=== PATIENT | female | born 1975 | race Caucasian/White ===

== ENCOUNTER → 2019-05-09 | Outpatient (CLI) | payer OTHER ==
[2019-05-09 16:03] LABS: BASOPHILS # (AUTO) 0.07 x10^3/uL (0-0.1); BASOPHILS % (AUTO) 1 % (0-1); EOSINOPHILS # (AUTO) 0.29 x10^3/uL (0-0.4); EOSINOPHILS % (AUTO) 3 % (1-7); LYMPHOCYTES # (AUTO) 1.42 x10^3/uL (1-3.4); LYMPHOCYTES % (AUTO) 13 % (22-44); MD NO; MEAN CORPUSCULAR HEMOGLOBIN 33.2 pg (27.0-34.8); MEAN CORPUSCULAR HGB CONC 33.6 g/dL (32.4-35.8); MEAN CORPUSCULAR VOLUME 98.8 fL (80-100); MEAN PLATELET VOLUME 7.8 fL (7.4-10.4); MONOCYTES # (AUTO) 0.66 x10^3/uL (0.2-0.8); MONOCYTES % (AUTO) 6 % (2-9); NEUTROPHILS # (AUTO) 8.27 x10^3/uL (1.8-6.8); NEUTROPHILS % (AUTO) 77 % (42-75); PLATELET COUNT 368 x10^3/uL (130-400); RED BLOOD COUNT 4.06 x10^6/uL (3.82-5.3); RED CELL DISTRIBUTION WIDTH 14.2 % (9.6-15.2)
[2019-05-09 16:20] LABS: ANION GAP 5 mmol/L (5-15); CALCIUM 8.3 mg/dL (8.5-10.1); CHLORIDE 106 mmol/L (98-107); CREATININE 0.86 mg/dL (0.55-1.02)
== END | disposition home or self-care (01) ==
LOC: CFH 14:23
PROVIDERS: ATTEND Nurse Practitioner Family
DX: D72.829 Elevated white blood cell count, unspecified (principal); E87.5 Hyperkalemia
CPT/HCPCS: 36415; 80048; 85025

== ENCOUNTER 2019-06-02 10:21 | Day surgery (SDC) | payer OTHER ==
[~2019-06-02] VITALS: Ht 181.6 cm; Wt 84.1 kg
[2019-06-02] MEDS ORDERED: LIDOCAINE 2%, 20ML ONE (10:33)
[2019-06-02] MEDS ORDERED: LIDOCAINE 2%, 20ML SQ PRN (11:00)
== END 2019-06-02 12:21 | disposition home or self-care (01) ==
LOC: CACL 10:21
PROVIDERS: ATTEND Internal Medicine Cardiovascular Disease
DX: R00.0 Tachycardia, unspecified (principal); R07.9 Chest pain, unspecified; F17.210 Nicotine dependence, cigarettes, uncomplicated; Z79.1 Long term (current) use of non-steroidal anti-inflammatories (NSAID); Z79.891 Long term (current) use of opiate analgesic; Z79.899 Other long term (current) drug therapy; Z98.890 Other specified postprocedural states
CPT/HCPCS: 33285; C1764

== ENCOUNTER 2019-08-23 05:58 | Day surgery (SDC) | payer OTHER ==
[~2019-08-23] VITALS: Ht 181.6 cm; Wt 84.1 kg
[2019-08-23] MEDS ORDERED: SODIUM CHLORIDE 0.9% 1,000 ML IV SCH (06:12)
[2019-08-23 06:14] VITALS: BP 124/87
[2019-08-23] MEDS ORDERED: GABA300C10 PO (06:28)
[2019-08-23] MEDS ORDERED: GABA600T7 PO (06:28)
[2019-08-23] MEDS ORDERED: METH500T7 PO (06:28)
[2019-08-23] MEDS ORDERED: TRAM50TA2 PO (06:28)
[2019-08-23] MEDS ORDERED: METO-282 PO (06:28)
[2019-08-23] MEDS ORDERED: MELO15TA24 PO (06:28)
[2019-08-23 06:50] LABS: BASOPHILS # (AUTO) 0.09 x10^3/uL (0-0.1); BASOPHILS % (AUTO) 1 % (0-1); EOSINOPHILS # (AUTO) 0.49 x10^3/uL (0-0.4); EOSINOPHILS % (AUTO) 5 % (1-7); LYMPHOCYTES # (AUTO) 2.22 x10^3/uL (1-3.4); LYMPHOCYTES % (AUTO) 23 % (22-44); MD NO; MEAN CORPUSCULAR HEMOGLOBIN 33.7 pg (27.0-34.8); MEAN CORPUSCULAR HGB CONC 33.6 g/dL (32.4-35.8); MEAN CORPUSCULAR VOLUME 100.3 fL (80-100); MEAN PLATELET VOLUME 7.1 fL (7.4-10.4); MONOCYTES # (AUTO) 0.94 x10^3/uL (0.2-0.8); MONOCYTES % (AUTO) 10 % (2-9); NEUTROPHILS # (AUTO) 6.05 x10^3/uL (1.8-6.8); NEUTROPHILS % (AUTO) 62 % (42-75); PLATELET COUNT 371 x10^3/uL (130-400); RED BLOOD COUNT 4.37 x10^6/uL (3.82-5.3); RED CELL DISTRIBUTION WIDTH 14.4 % (9.6-15.2)
[2019-08-23 07:08] LABS: ANION GAP 6 mmol/L (5-15); CALCIUM 9.2 mg/dL (8.5-10.1); CHLORIDE 105 mmol/L (98-107); CREATININE 0.91 mg/dL (0.55-1.02)
[2019-08-23] MEDS ORDERED: MIDAZOLAM 1 MG/ML, 5ML ONE (07:34)
[2019-08-23] MEDS ORDERED: LIDOCAINE 1%, 20ML ONE (07:35)
[2019-08-23] MEDS ORDERED: ISOPROTERENOL 0.2MG/ML, 5ML ONE (07:35)
[2019-08-23] MEDS ORDERED: FENTANYL PF 250 MCG/5ML ONE (07:35)
[2019-08-23] MEDS ORDERED: GABAPENTIN 300 MG CAPSULE PO SCH (13:00)
[2019-08-23] MEDS ORDERED: TEMPLATE NON-FORMULARY MED. (Gabapentin** 600 MG) PO SCH (21:00)
[2019-08-23] MEDS ORDERED: METHOCARBAMOL 500 MG TABLET PO SCH (21:00)
[2019-08-24] MEDS ORDERED: MELOXICAM 15 MG TABLET PO SCH (09:00)
== END 2019-08-23 13:56 | disposition home or self-care (01) ==
LOC: CACL 05:58
PROVIDERS: ATTEND Internal Medicine Cardiovascular Disease
DX: I47.1 Supraventricular tachycardia (principal); Z79.1 Long term (current) use of non-steroidal anti-inflammatories (NSAID); Z79.891 Long term (current) use of opiate analgesic; Z79.899 Other long term (current) drug therapy
CPT/HCPCS: 36415; 71046; 80048; 84703; 85025; 93613; 93621; 93623; 93653; 99156; 99157; C1730; C1894; C2630; J2250; J3010

== ENCOUNTER 2020-07-20 18:37 | Emergency (ER) | payer OTHER ==
[~2020-07-20] VITALS: Ht 180.3 cm; Wt 93.8 kg
[~2020-07-20 18:37] MED LIST: GABA300C10 PO; GABA600T7 PO; MELO15TA24 PO; METH-639 PO; METO-282 PO; TRAM50TA2 PO
--- NOTE | 2020-07-20 19:18 | NUR ---
PT TO ROOM 11 W/ C/O R KNEE PAIN X 2 DAYS. STATES SHE WAS WALKING IN HER HOUSE AND HER KNEE GAVE OUT AND SHE FELL LANDING ON HER R KNEE. CMS INTACT. PT RESTING ON JOSÉ MIGUEL. SHIRAZ.
[2020-07-20] MEDS ORDERED: OXYcodone/APAP 5/325MG TABLET ONE (20:26)
[2020-07-20] MEDS ORDERED: KETOROLAC 30 MG/1 ML ONE (20:26)
[2020-07-20] MEDS ORDERED: KETOROLAC 30 MG/1 ML IM ONE (20:30)
[2020-07-20] MEDS ORDERED: OXYcodone/APAP 5/325MG TABLET PO ONE (20:30)
--- NOTE | 2020-07-20 20:52 | NUR ---
REPORT GIVEN TO BETZAIDA DAN.
--- NOTE | 2020-07-20 21:00 | NUR ---
REPORT FROM BETZAIDA CRABTREE. PT SITTING UP IN [facility], AWAKE/ALERT. REPORTS IMPROVED PAIN WITH MEDICATIONS. SO AT BEDSIDE. TECH IN TO PLACE KNEE IMMOBILIZER AND PROVIDE CRUTCHES. AWAITING DISPO
--- NOTE | 2020-07-20 21:15 | NUR ---
PATIENT DID NOT ALLOW STAFF TO ADJUST THE CRUTCHES APPROPRIATELY. PATIENT STATES "THIS HEIGHT IS ACTUALLY PERFECT FOR ME."
--- NOTE | 2020-07-20 21:30 | NUR ---
NEW ORDER RECEIVED FOR MRI W/WO. IV ESTABLISHED. MRI SCREENING TOOL COMPLETED BY [employer]INTE[employer]CE MECHANIC. PT TO MRI AT THIS TIME.
[2020-07-20] MEDS ORDERED: GADOTERATE 10 MMOL/20ML SYR ONE (22:03)
--- NOTE | 2020-07-20 22:23 | NUR ---
RETURNED FROM MRI. NAD NOTED. BP/SPO2 MONITORING IN PLACE.
--- NOTE | 2020-07-20 22:55 | NUR ---
Report received from BETZAIDA Holm. This RN to assume care.
--- NOTE | 2020-07-20 23:47 | NUR ---
TASK RN: CONTACTED TAMARA REGARDING MRI READ. TECH STATES THAT IMAGING "ISN'T BEING READ AT ALL" AND THAT SHE WOULD CONTACT STAT RAD ON OUR BEHALF. PRIMARY RN AND ERP MADE AWARE OF DELAY.
[2020-07-21 00:11] VITALS: BP 140/77
== END 2020-07-21 00:13 | disposition home or self-care (01) ==
LOC: ED 07-21 00:10
DX: S76.111A Strain of right quadriceps muscle, fascia and tendon, initial encounter (principal); X58.XXXA Exposure to other specified factors, initial encounter; Y93.89 Activity, other specified; Y92.89 Other specified places as the place of occurrence of the external cause; Y99.8 Other external cause status
CPT/HCPCS: 29505; 73564; 73723; 96372; 99284; A9575; J1885